=== PATIENT | female | born 1985 | race African-American/Black ===

== ENCOUNTER 2024-01-21 22:11 | Emergency (ER) | payer SELFPAY ==
[~2024-01-21] VITALS: Ht 175.3 cm; Wt 123.6 kg
[2024-01-21 22:59] VITALS: TEMP 98.4
[2024-01-21] MEDS ORDERED: METF-1211 PO (23:07)
[2024-01-21] MEDS ORDERED: SEMA0.258 IM (23:07)
[2024-01-21 23:36] LABS: BASOPHILS % (AUTO) 0.8 % (0.0-2.0); EOSINOPHILS % (AUTO) 0.7 % (1.0-6.0); HEMATOCRIT 28.3 % (36-46); HEMOGLOBIN 8.9 g/dL (12.0-16.0); LYMPHOCYTES # (AUTO) 1.3 K/uL (1.0-4.8); LYMPHOCYTES % (AUTO) 15.6 % (22.0-44.0); MEAN CORPUSCULAR HEMOGLOBIN 22.1 pg (26.0-34.0); MEAN CORPUSCULAR HGB CONC 31.4 G/dL (31.0-37.0); MEAN CORPUSCULAR VOLUME 70 fL (80-100); MONOCYTES # (AUTO) 0.7 K/uL (0.1-1.0); NEUTROPHILS # (AUTO) 6.4 K/uL (1.8-7.7); NEUTROPHILS % (AUTO) 74.9 % (40.0-70.0); PLATELET COUNT (AUTO) 356 K/uL (150-450); RED BLOOD CELL COUNT(AUTO) 4.02 MIL/uL (4.00-5.20); RED CELL DISTRIBUTION WIDTH 16.7 % (11.5-14.5); WHITE BLOOD COUNT (AUTO) 8.6 K/uL (4.5-11.0)
[2024-01-21 23:54] LABS: ANION GAP 10 mmol/L (8-16); CALCIUM, TOTAL 9.5 mg/dL (8.8-10.5); CARBON DIOXIDE 26 mmol/L (22-29); CHLORIDE 102 mmol/L (98-107); CREATININE 0.83 mg/dL (0.60-1.30); GLOMERULAR FILTR. RATE CALC > 60 mL/min (>60); GLUCOSE,RANDOM 110 mg/dL (70-110); POTASSIUM 3.9 mmol/L (3.5-5.1); SODIUM SERUM 138 mmol/L (136-145); UREA NITROGEN, BLOOD 15 mg/dL (7-18)
[2024-01-21 23:56] LABS: ALCOHOL, BLOOD (SERUM) < 3 mg/dL (0-10)
[2024-01-22 00:01] LABS: TROPONIN I-HIGH SENSITIVITY 9 ng/L (<51)
[2024-01-22 00:17] LABS: COVID AG,FIA SOURCE NASAL SWAB
[2024-01-22 00:20] LABS: ALANINE AMINOTRANSFERASE 19 U/L (12-78); ALBUMIN 3.5 g/dL (3.4-5.0); ALKALINE PHOSPHATASE 52 U/L (46-116); ASPARTATE AMINOTRANSFERASE 18 U/L (15-37); BILIRUBIN,TOTAL 0.2 mg/dL (0.1-1.0); CREATINE KINASE, TOTAL ONLY 147 U/L (26-192); LIPASE 42 U/L (16-77); TOTAL PROTEIN, SERUM 7.5 g/dL (6.4-8.2)
[2024-01-22 00:27] LABS: LACTIC ACID 1.6 mmol/L (0.4-2.0)
[2024-01-22 00:42] LABS: SARS-COV2 (COVID) ANTIGEN,FIA Negative (Negative)
[2024-01-22 00:43] LABS: APPEARANCE,URINE CLEAR (CLEAR); BILIRUBIN,URINE NEGATIVE (NEGATIVE); COLOR,URINE LIGHT YELLOW (YELLOW); GLUCOSE, URINE (UA) NEGATIVE (NEGATIVE); KETONES,URINE NEGATIVE (NEGATIVE); LEUKOCYTE ESTERASE ,URINE NEGATIVE (NEGATIVE); NITRATE,URINE NEGATIVE (NEGATIVE); OCCULT BLOOD,URINE NEGATIVE (NEGATIVE); PROTEIN,URINE NEGATIVE (NEGATIVE); SPECIFIC GRAVITIY, URINE 1.025 (1.003-1.030); UROBILINOGEN,URINE <=1.0 mg/dL (<=1.0)
[2024-01-22] MEDS ORDERED: SODIUM CHLORIDE 0.9% 100 ML ONE (00:51)
[2024-01-22] MEDS ORDERED: IOHEXOL 350 MG/ML 100 ML VIAL ONE (00:51)
[2024-01-22] MEDS: DiphenhydrAMINE HCL 50 MG/ML VIAL IVP ONE (01:25)
[2024-01-22 02:24] LABS: RBC MORPHOLOGY COMMENT ABNORMAL RBC MORPH
[2024-01-22 07:10] VITALS: BP 142/73; PULSE 78; RESP 18
== END 2024-01-22 07:28 | disposition home or self-care (01) ==
LOC: EMS 22:11
DX: R07.9 Chest pain, unspecified (principal); E11.9 Type 2 diabetes mellitus without complications; Z20.822 Contact with and (suspected) exposure to COVID-19; Z98.890 Other specified postprocedural states
CPT/HCPCS: 99285; 71045; 87426; 80053; 82550; 83605; 83690; 84484; 84703; 85025; 85379; 36415; 93005; 81003; 71275; G0480; Q9967; J7050